=== PATIENT | male | born 1990 | race Caucasian/White ===

== ENCOUNTER 2017-10-20 07:46 | Emergency (ER) | payer OTHER ==
[2017-10-20] MEDS ORDERED: Sodium Chloride 0.9% 2.5 ML Syringe FLUSH PRN (08:05)
[2017-10-20] MEDS ORDERED: Morphine 2 MG/ML Syringe IVPUSH ONE (08:05)
[2017-10-20] MEDS ORDERED: Sodium Chloride 0.9% 1,000 ML IV ONE (08:05)
[2017-10-20] MEDS ORDERED: Sodium Chloride 0.9% 10 ML Syringe FLUSH PRN (08:05)
[2017-10-20] MEDS ORDERED: Ketorolac 30 MG/ML SDV IVPUSH ONE (08:05)
--- NOTE | 2017-10-20 08:09 | EDM.PDOC ---
ED HPI GENERAL MEDICAL PROBLEM - General Chief Complaint: Abdominal Pain Stated Complaint: LOWER LEFT ABDOMINAL PAIN Time Seen by Provider: 10/20/17 07:56 - History of Present Illness INITIAL COMMENTS - FREE TEXT/NARRATIVE: HISTORY AND PHYSICAL: History of present illness: The patient is a 27-year-old male who presents with left mid and left lower quadrant pain that started a day and a half ago which was not gradual in onset but not sudden either. He describes the pain as a deep pain which is aching and stabbing at times and he has had loose stools which have been clear in color not black or bloody. The patient has a history of diverticulitis diagnosed in our clinic on May 31, 2017 for which she got labs and a CAT scan. The patient was placed on antibiotics but he says that he was feeling better so he stopped taking them and never finished. The patient says he has not had urinary complaints but is noticed his urine is dark in color but he's been drinking a lot of soda and not much water lately. The patient does not eat a high fiber diet but has been eating and drinking normally. He has had some nausea but is currently not nauseated and he has not had a distinct fever but has felt sweaty episodically over the last 2 days. He has no upper respiratory symptoms no discrete flank pain. The patient states that after his visit in May in the clinic he did not follow-up Review of systems: As per history of present illness and below otherwise all systems reviewed and negative. Past medical history: As per history of present illness and as reviewed below otherwise noncontributory. Surgical history: As per history of present illness and as reviewed below otherwise noncontributory. Social history: No reported history of drug or alcohol abuse. Family history: As per history of present illness and as reviewed below otherwise noncontributory. Physical exam: Gen.: Well-developed overweight male who is nontoxic and vital signs are noted by me HEENT: Atraumatic, normocephalic, negative for conjunctival pallor or scleral icterus, mucous membranes moist, throat clear, neck supple, nontender, trachea midline. Lungs: Clear to auscultation, breath sounds equal bilaterally, chest nontender. Heart: S1S2, regular in rhythm no overt murmurs Abdomen: Soft, nondistended, there is tenderness in the left lower quadrant with some voluntary guarding but no involuntary guarding which is localized to this area. There is no rebound and bowel sounds are hypoactive. Negative for masses or hepatosplenomegaly. Negative for costovertebral tenderness. Pelvis: Stable nontender. Genitourinary: Deferred. Rectal: Deferred. Extremities: Atraumatic, negative for cords or calf pain. Neurovascular unremarkable. Neuro: Awake, alert, oriented. Cranial nerves II through XII unremarkable. Cerebellum unremarkable. Motor and sensory unremarkable throughout. Exam nonfocal. Diagnostics: CBC CMP UA lipase CT scan of the abdomen and pelvis Therapeutics: IV fluids Toradol morphine Flagyl and Cipro Impression: Sigmoid diverticulitis Definitive disposition and diagnosis as appropriate pending reevaluation and review of above. Abdominal Pain Score (Numeric/FACES): 3 - Related Data Allergies Allergy/AdvReac Type Severity Reaction Status Date / Time codeine Allergy Unknown Other Verified 10/20/17 08:04 Home Meds: Home Meds . [No Known Home Meds] 10/20/17 [History] Social & Family History - Tobacco Use Smoking Status *Q: Never Smoker Second Hand Smoke Exposure: No - Alcohol Use Days Per Week of Alcohol Use: 0 - Recreational Drug Use Recreational Drug Use: No ED ROS GENERAL - Review of Systems Review Of Systems: ROS reveals no pertinent complaints other than HPI. ED EXAM, GENERAL - Physical Exam Exam: See Below (See dictation) Course - Vital Signs Last Recorded V/S: Last Vital Signs Temp 37.1 C 10/20/17 09:04 Pulse 89 10/20/17 09:04 Resp 18 10/20/17 09:04 BP 139/76 10/20/17 09:04 Pulse Ox 96 10/20/17 09:04 - Orders/Labs/Meds Orders: Active Orders 24 hr Category Date Time Status Sodium Chloride 0.9% [Saline Flush] Med 10/20/17 08:05 Active 10 ml FLUSH ASDIRECTED PRN Sodium Chloride 0.9% [Saline Flush] Med 10/20/17 08:05 Active 2.5 ml FLUSH ASDIRECTED PRN metroNIDAZOLE/Normal Saline [Flagyl 500 MG in NS 100 ML Med 10/20/17 10:19 Ordered ] 500 mg Premix Bag 1 bag IV ONETIME Saline Lock Insert [OM.PC] Stat Oth 10/20/17 08:04 Ordered Medication Orders Metronidazole 500 mg/ Premix 100 mls @ 100 mls/hr IV ONETIME ONE Stop: 10/20/17 11:18 Sodium Chloride (Saline Flush) 10 ml FLUSH ASDIRECTED PRN PRN Reason: Keep Vein Open Last Admin: 10/20/17 08:39 Dose: 10 ml Sodium Chloride (Saline Flush) 2.5 ml FLUSH ASDIRECTED PRN PRN Reason: Keep Vein Open Last Admin: 10/20/17 08:40 Dose: 2.5 ml Labs: Laboratory Tests 10/20/17 10/20/17 10/20/17 Range/Units 08:26 08:32 08:32 WBC 8.68 (4.0-11.0) K/uL RBC 5.73 (4.50-5.90) M/uL Hgb 15.2 (13.0-17.0) g/dL Hct 45.6 (38.0-50.0) % MCV 79.6 L (80.0-98.0) fL MCH 26.5 L (27.0-32.0) pg MCHC 33.3 (31.0-37.0) g/dL RDW Std Deviation 42.5 (28.0-62.0) fl RDW Coeff of Anahi 15 (11.0-15.0) % Plt Count 230 (150-400) K/uL MPV 9.60 (7.40-12.00) fL Neut % (Auto) 62.8 (48.0-80.0) % Lymph % (Auto) 18.0 (16.0-40.0) % [place] % (Auto) 15.7 H (0.0-15.0) % Eos % (Auto) 3.3 (0.0-7.0) % Baso % (Auto) 0.2 (0.0-1.5) % Neut # (Auto) 5.5 (1.4-5.7) K/uL Lymph # (Auto) 1.6 (0.6-2.4) K/uL Union # (Auto) 1.4 H (0.0-0.8) K/uL Eos # (Auto) 0.3 (0.0-0.7) K/uL Baso # (Auto) 0.0 (0.0-0.1) K/uL Nucleated RBC % 0.0 /100WBC Nucleated RBCs # 0 K/uL Sodium 141 (136-148) mmol/L Potassium 3.5 (3.5-5.1) mmol/L Chloride 106 (98-107) mmol/L Carbon Dioxide 26.9 (21.0-32.0) mmol/L BUN 15 (7.0-18.0) mg/dL Creatinine 0.8 (0.8-1.3) mg/dL Est Cr Clr Drug Dosing 119.58 mL/min Estimated GFR (MDRD) > 60.0 ml/min Glucose 86 (74-106) mg/dL Calcium 9.1 (8.5-10.1) mg/dL Total Bilirubin 0.5 (0.2-1.0) mg/dL AST 59 H (15-37) U/L ALT 80 H (14-63) U/L Alkaline Phosphatase 134 H (46-116) U/L Total Protein 7.6 (6.4-8.2) g/dL Albumin 3.3 L (3.4-5.0) g/dL Globulin 4.3 H (2.0-3.5) g/dL Albumin/Globulin Ratio 0.8 L (1.3-2.8) Lipase 163 (73-393) U/L Urine Color YELLOW Urine Appearance CLEAR Urine pH 6.0 (5.0-8.0) Ur Specific [place] 1.025 (1.001-1.035) Urine Protein 30 (NEGATIVE) mg/dL Urine Glucose (UA) NEGATIVE (NEGATIVE) mg/dL Urine Ketones TRACE H (NEGATIVE) mg/dL Urine Occult Blood SMALL H (NEGATIVE) Urine Nitrite NEGATIVE (NEGATIVE) Urine Bilirubin SMALL H (NEGATIVE) Urine Ictotest NEGATIVE Urine Urobilinogen 0.2 (<2.0) EU/dL Ur Leukocyte Esterase NEGATIVE (NEGATIVE) Urine RBC 0-2 (0-2/HPF) Urine WBC 0-1 (0-5/HPF) Ur Epithelial Cells RARE (NONE-FEW) Urine Bacteria FEW (NEGATIVE) Urine Mucus LIGHT (NONE-MOD) Meds: Medications Generic Name Dose Route Start Last Admin Trade Name Freq PRN Reason Stop Dose Admin Metronidazole 500 mg/ Premix 100 mls @ 100 mls/hr 10/20/17 10:19 IV 10/20/17 11:18 ONETIME ONE Sodium Chloride 10 ml 10/20/17 08:05 10/20/17 08:39 Saline Flush FLUSH 10 ml ASDIRECTED PRN Administration Keep Vein Open Sodium Chloride 2.5 ml 10/20/17 08:05 10/20/17 08:40 Saline Flush FLUSH 2.5 ml ASDIRECTED PRN Administration Keep Vein Open Discontinued Medications Generic Name Dose Route Start Last Admin Trade Name Freq PRN Reason Stop Dose Admin Ciprofloxacin 500 mg 10/20/17 10:20 Ciprofloxacin Hcl PO 10/20/17 10:21 ONETIME ONE Sodium Chloride 1,000 mls @ 999 mls/hr 10/20/17 08:05 10/20/17 08:27 Normal Saline IV 10/20/17 09:05 999 mls/hr STAT ONE Administration Iopamidol 100 ml 10/20/17 09:30 Isovue Multipack-370 (76%) IVPUSH 10/20/17 09:31 ONETIME STA Ketorolac Tromethamine 30 mg 10/20/17 08:05 10/20/17 08:26 Toradol IVPUSH 10/20/17 08:06 30 mg ONETIME ONE Administration Morphine Sulfate 2 mg 10/20/17 08:05 10/20/17 08:59 Morphine IVPUSH 10/20/17 08:06 2 mg ONETIME ONE Administration Departure - Departure Time of Disposition: 10:23 Disposition: Home, Self-Care 01 Condition: Good Clinical Impression: Sigmoid diverticulitis - Discharge Information Referrals: PCP,None [Primary Care Provider] - Forms: ED Department Discharge Additional Instructions: The following information is given to patients seen in the emergency department who are being discharged to home. This information is to outline your options for follow-up care. We provide all patients seen in our emergency department with a follow-up referral. The need for follow-up, as well as the timing and circumstances, are variable depending upon the specifics of your emergency department visit. If you don't have a primary care physician on staff, we will provide you with a referral. We always advise you to contact your personal physician following an emergency department visit to inform them of the circumstance of the visit and for follow-up with them and/or the need for any referrals to a consulting specialist. The emergency department will also refer you to a specialist when appropriate. This referral assures that you have the opportunity for followup care with a specialist. All of these measure are taken in an effort to provide you with optimal care, which includes your followup. Under all circumstances we always encourage you to contact your private physician who remains a resource for coordinating your care. When calling for followup care, please make the office aware that this follow-up is from your recent emergency room visit. If for any reason you are refused follow-up, please contact the [facility] emergency department at and ask to speak to the emergency department charge nurse. [facility] Primary care- Internal Medicine and Family [address] [address] Please push hydration and avoid soda and increase fiber in your diet or use a fiber supplement. These take all antibiotics as prescribed until they are finished. Use Bentyl as needed for cramping and pain. Please call and schedule a follow-up appointment in the clinic as we discussed and return to ER as needed as discussed. - My Orders Last 24 Hours: My Active Orders 10/20/17 08:04 Saline Lock Insert [OM.PC] Stat 10/20/17 08:05 Sodium Chloride 0.9% [Saline Flush] 10 ml FLUSH ASDIRECTED PRN Sodium Chloride 0.9% [Saline Flush] 2.5 ml FLUSH ASDIRECTED PRN 10/20/17 10:19 metroNIDAZOLE/Normal Saline [Flagyl 500 MG in NS 100 ML] 500 mg Premix Bag 1 bag IV ONETIME - Assessment/Plan Last 24 Hours: My Active Orders 10/20/17 08:04 Saline Lock Insert [OM.PC] Stat 10/20/17 08:05 Sodium Chloride 0.9% [Saline Flush] 10 ml FLUSH ASDIRECTED PRN Sodium Chloride 0.9% [Saline Flush] 2.5 ml FLUSH ASDIRECTED PRN 10/20/17 10:19 metroNIDAZOLE/Normal Saline [Flagyl 500 MG in NS 100 ML] 500 mg Premix Bag 1 bag IV ONETIME
[2017-10-20 09:09] LABS: CHLORIDE,CL 106 mmol/L (98-107); SODIUM,NA 141 mmol/L (136-148)
[2017-10-20] MEDS ORDERED: Iopamidol 755 MG/ML 500 ML Multipack Bottle IVPUSH STA (09:30)
--- NOTE | 2017-10-20 10:09 | CT ---
CT of the abdomen and pelvis with contrast. HISTORY: Pain TECHNIQUE: Axial CT images were obtained of the abdomen and pelvis following administration of 100 mL of Isovue-370 in the right antecubital fossa without complication. Coronal and sagittal reconstructi ons obtained. FINDINGS: The lung bases are clear without a pleural effusion. Mild dependent atelectasis. The liver, spleen, adrenal glands, and pancreas appear normal. The gallbladder is normal. There is no bulky retroperitoneal lymphadenopathy. There is a borderline 1.5 cm portacaval lymph node. No abdomi nal ascites. The kidneys enhance and function symmetrically without evidence of obstructive uropathy. The large and small bowel are normal in caliber without evidence of obstruction. There is sigmoid div erticulosis with moderate adjacent stranding. No free air or organized fluid suggest perforation. Ap pendectomy. Urinary bladder is normal. No pelvic lymphadenopathy. No suspicious osseous abnormalities identified. IMPRESSION: 1. Sigmoid diverticulitis.
[2017-10-20] MEDS ORDERED: metroNIDAZOLE/Normal Saline 500 MG in Premix Bag 1 BAG IV ONE (10:19)
[2017-10-20] MEDS ORDERED: Ciprofloxacin 500 MG Tab PO ONE (10:20)
[2017-10-20 12:06] VITALS: BP 125/83
== END 2017-10-20 11:38 | disposition home or self-care (01) ==
LOC: MW.ED 07:46
DX: K57.32 Diverticulitis of large intestine without perforation or abscess without bleeding (principal); Z88.5 Allergy status to narcotic agent
CPT/HCPCS: 36415; 74177; 80053; 81001; 83690; 85025; 96361; 96365; 96375; 99284; A9270; J1885; J2270; J7040; 99283

== ENCOUNTER 2019-05-05 15:57 | Emergency (ER) | payer OTHER ==
[2019-05-05] MEDS ORDERED: Sodium Chloride 0.9% 10 ML Syringe FLUSH PRN (15:58)
[2019-05-05] MEDS ORDERED: EPINEPHrine 1 MG/ML SDV IM ONE (15:58)
[2019-05-05] MEDS ORDERED: diphenhydrAMINE 50 MG/ML SDV IVPUSH ONE (15:58)
[2019-05-05] MEDS ORDERED: Sodium Chloride 0.9% 2.5 ML Syringe FLUSH PRN (15:58)
[2019-05-05] MEDS ORDERED: Famotidine 20 MG/2 ML SDV IVPUSH ONE (15:58)
[2019-05-05] MEDS ORDERED: methylPREDNISolone Sodium Succinate 125 MG/2 ML SDV IVPUSH ONE (15:58)
--- NOTE | 2019-05-05 15:59 | EDM.PDOC ---
ED HPI GENERAL MEDICAL PROBLEM - General Chief Complaint: Allergic Reaction Stated Complaint: ALLERGIC REACTION Time Seen by Provider: 05/05/19 15:59 Source of Information: Reports: Patient History Limitations: Reports: No Limitations - History of Present Illness INITIAL COMMENTS - FREE TEXT/NARRATIVE: HISTORY AND PHYSICAL: History of present illness: Patient is a 28-year-old male presents to the ED for a wasp sting. Patient was stung about 20 minutes prior to arrival to the ED. He is complaining of lip swelling and lip and face tingling. He denies throat swelling, itching, or hoarseness. He states he has history of allergy to bee stings and use to have an epi pen but has not had one in years. Review of systems: As per history of present illness and below otherwise all systems reviewed and negative. Past medical history: As per history of present illness and as reviewed below otherwise noncontributory. Surgical history: As per history of present illness and as reviewed below otherwise noncontributory. Social history: No reported history of drug or alcohol abuse. Family history: As per history of present illness and as reviewed below otherwise noncontributory. Physical exam: General: Patient sitting comfortably in no acute distress and nontoxic appearing HEENT: Patients face is slightly erythematous with minimal lip swelling. No oralpharyngeal swelling noted. Atraumatic, normocephalic, pupils reactive, negative for conjunctival pallor or scleral icterus, mucous membranes moist, throat clear, neck supple, nontender, trachea midline. No meningeal signs. Lungs: Clear to auscultation, breath sounds equal bilaterally, chest nontender. Heart: S1S2, regular, negative for clicks, rubs, or overt murmur. Abdomen: Soft, nondistended, nontender. Negative for masses or hepatosplenomegaly. Negative for costovertebral tenderness. No rigidity, rebound , guarding. Pelvis: Stable nontender. Genitourinary: Deferred. Rectal: Deferred. Skin: Hives noted of the right arm. There is a wheal noted to the right forearm with moderate swelling. Extremities: Atraumatic, negative for cords or calf pain. Neurovascular unremarkable. Neuro: Awake, alert, oriented. Cranial nerves II through XII unremarkable. Cerebellum unremarkable. Motor and sensory unremarkable throughout. Exam nonfocal. Notes: Diagnostics: [] Therapeutics: Epi 0.4mg IM 1L NS IV 125mg Solumedrol IV 20mg Famotidine IV 50mg Benadryl IV 4mg Zofran IV Prescriptions: Medrol dosepak EpiPen Impression: Allergic reaction to wasp sting Plan: Take medrol dosepak as prescribed and take benadryl every 4-6 hours until resolved Follow up with primary care provider Return to ED as needed as discussed Definitive disposition and diagnosis as appropriate pending reevaluation and review of above. - Related Data Allergies Allergy/AdvReac Type Severity Reaction Status Date / Time codeine Allergy Unknown Other Verified 05/05/19 16:07 strawberry Allergy Rash Verified 05/05/19 16:07 Home Meds: Home Meds . [No Known Home Meds] 10/20/17 [History] Past Medical History Respiratory History: Reports: Asthma Gastrointestinal History: Reports: Diverticulosis Psychiatric History: Reports: None - Infectious Disease History Infectious Disease History: Reports: Chicken Pox - Past Surgical History HEENT Surgical History: Reports: Tonsillectomy GI Surgical History: Reports: Appendectomy Social & Family History - Family History Family Medical History: Noncontributory - Caffeine Use Caffeine Use: Reports: Soda ED ROS ALLERGIC REACTION - Review of Systems Review Of Systems: ROS reveals no pertinent complaints other than HPI. ED EXAM GENERAL NO PERIP PULSE - Physical Exam Exam: See Below (see dictation) Course - Vital Signs Last Recorded V/S: Last Vital Signs Temp 99.2 F 05/05/19 16:04 Pulse 85 05/05/19 16:38 Resp 18 05/05/19 16:38 BP 133/79 05/05/19 16:38 Pulse Ox 96 05/05/19 16:38 - Orders/Labs/Meds Orders: Active Orders 24 hr Category Date Time Status Sodium Chloride 0.9% [Normal Saline] 1,000 ml Med 05/05/19 16:15 Active IV ASDIRECTED Sodium Chloride 0.9% [Saline Flush] Med 05/05/19 15:58 Active 10 ml FLUSH ASDIRECTED PRN Sodium Chloride 0.9% [Saline Flush] Med 05/05/19 15:58 Active 2.5 ml FLUSH ASDIRECTED PRN Saline Lock Insert [OM.PC] Stat Oth 05/05/19 15:58 Ordered Medication Orders Sodium Chloride (Normal Saline) 1,000 mls @ 999 mls/hr IV ASDIRECTED DOREEN Last Admin: 05/05/19 16:14 Dose: 999 mls/hr Sodium Chloride (Saline Flush) 10 ml FLUSH ASDIRECTED PRN PRN Reason: Keep Vein Open Sodium Chloride (Saline Flush) 2.5 ml FLUSH ASDIRECTED PRN PRN Reason: Keep Vein Open Meds: Medications Generic Name Dose Route Start Last Admin Trade Name Freq PRN Reason Stop Dose Admin Sodium Chloride 1,000 mls @ 999 mls/hr 05/05/19 16:15 05/05/19 16:14 Normal Saline IV 999 mls/hr ASDIRECTED DOREEN Administration Sodium Chloride 10 ml 05/05/19 15:58 Saline Flush FLUSH ASDIRECTED PRN Keep Vein Open Sodium Chloride 2.5 ml 05/05/19 15:58 Saline Flush FLUSH ASDIRECTED PRN Keep Vein Open Discontinued Medications Generic Name Dose Route Start Last Admin Trade Name Freq PRN Reason Stop Dose Admin Diphenhydramine HCl 50 mg 05/05/19 15:58 05/05/19 16:13 Benadryl IVPUSH 05/05/19 15:59 50 mg ONETIME ONE Administration Epinephrine HCl 0.4 mg 05/05/19 15:58 05/05/19 16:13 Adrenalin IM 05/05/19 15:59 0.4 mg ONETIME ONE Administration Famotidine 20 mg 05/05/19 15:58 05/05/19 16:13 Pepcid IVPUSH 05/05/19 15:59 20 mg ONETIME ONE Administration Methylprednisolone Sodium Succinate 125 mg 05/05/19 15:58 05/05/19 16:13 Solu-Medrol IVPUSH 05/05/19 15:59 125 mg ONETIME ONE Administration Ondansetron HCl 4 mg 05/05/19 16:12 05/05/19 16:16 Zofran IVPUSH 05/05/19 16:13 4 mg ONETIME ONE Administration Departure - Departure Time of Disposition: 16:42 Disposition: Home, Self-Care 01 Condition: Good Clinical Impression: Allergic reaction - Discharge Information Referrals: PCP,None [Primary Care Provider] - Additional Instructions: The following information is given to patients seen in the emergency department who are being discharged to home. This information is to outline your options for follow-up care. We provide all patients seen in our emergency department with a follow-up referral. The need for follow-up, as well as the timing and circumstances, are variable depending upon the specifics of your emergency department visit. If you don't have a primary care physician on staff, we will provide you with a referral. We always advise you to contact your personal physician following an emergency department visit to inform them of the circumstance of the visit and for follow-up with them and/or the need for any referrals to a consulting specialist. The emergency department will also refer you to a specialist when appropriate. This referral assures that you have the opportunity for follow-up care with a specialist. All of these measure are taken in an effort to provide you with optimal care, which includes your follow-up. Under all circumstances we always encourage you to contact your private physician who remains a resource for coordinating your care. When calling for follow-up care, please make the office aware that this follow-up is from your recent emergency room visit. If for any reason you are refused follow-up, please contact the [facility] Emergency Department at and asked to speak to the emergency department charge nurse. [facility] Primary Care [address] [place] [address] [id number] [address] [address] Take medrol dosepak as prescribed and take benadryl every 4-6 hours until resolved Follow up with primary care provider Return to ED as needed as discussed - My Orders Last 24 Hours: My Active Orders 05/05/19 15:58 Sodium Chloride 0.9% [Saline Flush] 10 ml FLUSH ASDIRECTED PRN Sodium Chloride 0.9% [Saline Flush] 2.5 ml FLUSH ASDIRECTED PRN Saline Lock Insert [OM.PC] Stat 05/05/19 16:15 Sodium Chloride 0.9% [Normal Saline] 1,000 ml IV ASDIRECTED - Assessment/Plan Last 24 Hours: My Active Orders 05/05/19 15:58 Sodium Chloride 0.9% [Saline Flush] 10 ml FLUSH ASDIRECTED PRN Sodium Chloride 0.9% [Saline Flush] 2.5 ml FLUSH ASDIRECTED PRN Saline Lock Insert [OM.PC] Stat 05/05/19 16:15 Sodium Chloride 0.9% [Normal Saline] 1,000 ml IV ASDIRECTED
[2019-05-05] MEDS ORDERED: Ondansetron 4 MG/2 ML SDV IVPUSH ONE (16:12)
[2019-05-05] MEDS ORDERED: Sodium Chloride 0.9% 1,000 ML IV SCH (16:15)
[2019-05-05 18:04] VITALS: BP 130/58; PULSE 96
== END 2019-05-05 18:02 | disposition home or self-care (01) ==
LOC: MW.ED 15:57
DX: T63.461A Toxic effect of venom of wasps, accidental (unintentional), initial encounter (principal); J45.909 Unspecified asthma, uncomplicated; Z88.5 Allergy status to narcotic agent; Z91.018 Allergy to other foods
CPT/HCPCS: 96361; 96372; 96374; 96375; 99283; J0171; J1200; J2405; J2930; J7040; S0028; J3490